=== PATIENT | female | born 1960 | race Caucasian/White ===

== ENCOUNTER → 2024-03-14 | Outpatient (CLI) | payer OTHER ==
[~2024-03-14] MED LIST: Estradiol1 MG PO; GABA300 PO; GEMF600 PO; HYDCHL50 PO; MORP60ER PO; Oxycontin20 MG PO; SIMV40 PO; VENL37.5ER PO
== END | disposition home or self-care (01) ==
LOC: LAB SHORT 15:52 → LAB 15:52
DX: L03.012 Cellulitis of left finger (principal)
CPT/HCPCS: 87070; 87077; 87205